=== PATIENT | female | born 1945 | race Caucasian/White ===

== ENCOUNTER 2018-06-19 05:56 | Day surgery (SDC) | payer OTHER ==
[~2018-06-19] VITALS: Ht 167.6 cm; Wt 61.2 kg
[~2018-06-19 05:56] MED LIST: ALLERCLEAR10 MG PO; AMLO10 PO; CALCIUM WITH V1 EACH PO; DAILY FIBER0.52 GM PO; HYDCHL25 PO; LISI5 PO; Omeprazole20 M1 PO; SIMV10 PO; SUPER B MAXI C0.4 MG PO; Transderm-Scop1 EACH TD
--- NOTE | 2018-06-19 06:42 | NUR ---
History, Chart, Medications and Allergies reviewed before start of procedure. Patient confirms NPO status and agrees with scheduled surgery. Lungs clear T/O to Auscultation. Patient States Post-Procedure ride home has been arranged. Pre-Op teaching done. Pt verbalizes understanding.
--- NOTE | 2018-06-19 07:03 | NUR ---
IV STARTED BY 2ND YEAR RN MADI WILSON WITH MY OVERVIEW AND INSTRUCTION.
--- NOTE | 2018-06-19 07:16 | NUR ---
TRACKER CARD EXPLAINED AND PATIENT AND FAMILY GIVEN OPPORTUNITY TO ASK QUESTIONS.
--- NOTE | 2018-06-19 07:18 | NUR ---
MAKE UP WORKER REPORT COMPLETED AT BEDSIDE WITH HARDIK ASKEW RN.
--- NOTE | 2018-06-19 07:21 | NUR ---
DR TO BEDSIDE TO TALK WITH PATIENT AND SPOUSE REGARDING PROCEDURE AND RUBBER BAND LIGATION.
--- NOTE | 2018-06-19 07:22 | NUR ---
PATIENT WILL NOT NEED TO HAVE A SECOND ENEMA HERE AT [facility], SHE COMPLETED ONE AT HOME. PER DR DOUGLAS.
--- NOTE | 2018-06-19 07:36 | NUR ---
0738- UP TO BR FOR UNMEASURED VOID. IV VERSED 2 MG TITRATED TO EFFECT ADMINISTERED, SCOPALAMINE PATCH PLACED BEHIND LEFT EAR.
--- NOTE | 2018-06-19 08:01 | NUR ---
06/19/18 0801 Yana Clarke NO PREOP ANTIBIOTICS ORDERED
--- NOTE | 2018-06-19 09:08 | NUR ---
PT AWAKE UPON ARRIVAL TO STEPDOWN. STATES SHE FEELS "HEAVY" AND "NOT AWAKE." ANSWERS ALL QUESTIONS APPROPRIATELY. NO C/O PAIN OR DISCOMFORT BUT DOES C/O "MUSCLES TENSING" AND BEING COLD. EATING ICE CHIPS AT THIS TIME. NOW AT BEDSIDE.
--- NOTE | 2018-06-19 09:23 | NUR ---
WARM BLANKETS APPLIED. PT C/O DRY MOUTH. EATING ICE CHIPS AT THIS TIME.
--- NOTE | 2018-06-19 09:27 | NUR ---
PT CONT TO C/O MUSCLES TENSING - STATES ISOLATED TO BUTTOCKS AND THIGH AREA. DISCUSSED PROTECTIVE MECHANISM OF BODY AND RELAXATION TECHNIQUES - PT DEEP BREATHING WELL WITH COACHING FROM . CONTINUES TO DENY PAIN OR DISCOMFORT. STATES JUST "TENSING"
--- NOTE | 2018-06-19 09:38 | NUR ---
PT VISITING WITH , CONTINUES TO EAT ICE CHIPS. INITIATING POSITION CHANGES.
--- NOTE | 2018-06-19 09:51 | NUR ---
POSITION CHANGE TO RIGHT SIDE - PT STATES "THAT IS SO MUCH BETTER". CONTINUES TO EAT ICE CHIPS. WISHING TO SPEAK WITH MD PRIOR TO LEAVING. MD IN CASE - UPDATED PATIENT.
--- NOTE | 2018-06-19 10:30 | NUR ---
SUMMARY: PRIOR TO DISCHARGE MD TO BEDSIDE TO REVIEW CASE WITH PATIENT AND . ALL QUESTIONS ANSWERED. THIS RN REVIEWED DISCHARGE INSTRUCTIONS WITH PATIENT AND , BOTH OF WHOM VERBALIZED UNDERSTANDING OF ALL. PT STOOD AT BEDSIDE AND DRESSED SELF WITH MINIMAL ASSISTANCE FROM RN. NO C/O DIZZINESS OR LIGHTHEADEDNESS. NO BLEEDING AT SURGICAL SITE. IV D/C TIP INTACT AND PT DISCHARGED HOME VIA W/C WITH TO DRIVE HER.
== END 2018-06-19 22:49 | disposition home or self-care (01) ==
LOC: ORSCMMR 05:56 → ORD 07:30 → ORSCMMR 07:30
PROVIDERS: Surgery
PROC: 06BY0ZC Excision of Hemorrhoidal Plexus, Open Approach (ICD-10-PCS; principal; 2018-06-19 07:30)
DX: K62.5 Hemorrhage of anus and rectum (principal); K21.9 Gastro-esophageal reflux disease without esophagitis; I10 Essential (primary) hypertension; E78.5 Hyperlipidemia, unspecified; Z79.82 Long term (current) use of aspirin; Z79.899 Other long term (current) drug therapy
CPT/HCPCS: 88304; J1100; J1885; J2250; J2370; J2405; J2710; J3010; J7120